=== PATIENT | female | born 1950 | race Two or more races ===

== ENCOUNTER 2023-08-30 17:49 | Inpatient (IN) | payer OTHER ==
[~2023-08-30] VITALS: Ht 170.2 cm; Wt 123.2 kg
[2023-08-30] MEDS ORDERED: AMIODARONE 450mg/250ml AE 250 ML IV ONE (18:08)
[2023-08-30] MEDS ORDERED: NOREPINEPHRINE 8 MG/250ML KIT 250 ML IV ONE (18:10)
[2023-08-30] MEDS ORDERED: AMIODARONE 450mg/250ml AE 250 ML IV SCH (18:30)
[2023-08-30] MEDS: NOREPINEPHRINE 8 MG/250ML KIT 250 ML IV SCH (19:00)
[2023-08-30 19:01] LABS: Hematocrit 36.7 % (36.0-46.0); Hemoglobin 11.3 g/dL (12.2-16.2); Mean Corpuscular Hemoglobin 34.7 pg (28.0-32.0); Mean Corpuscular Hgb Conc. 30.7 g/dL (32.0-36.0); Red Blood Cells 3.25 10^6/uL (4.0-5.20); Red Cell Distribution Width 15.3 % (11.8-14.3); White Blood Cell 20.3 10^3/uL (4.4-10.8)
[2023-08-30] MEDS ORDERED: EPINEPHrine HCL 250 ML IV ONE ×2 (19:10→19:15)
[2023-08-30 19:18] LABS: Basophils % (manual) 0 (0.0-2.0); Blast Cells 0; Eosinophils % (manual) 0 (0-7); Promyelocytes % 0; Reactive Lymphocytes 0
[2023-08-30 19:20] LABS: INR 1.19 (0.9-1.15); Partial Thromboplastin Time 33.9 SEC (24.5-34.5); Prothrombin Time 12.4 sec (9.3-11.8)
[2023-08-30 19:28] LABS: Alanine Aminotransferase 188 U/L (7-40); Albumin 3.7 g/dL (3.2-4.8); Alkaline Phosphatase 85 U/L (46-116); Anion Gap 21 (5-15); Aspartate Aminotransferase 332 U/L (13-40); BUN/Creatinine Ratio 9.3 (10.0-20.0); Blood Urea Nitrogen 19 mg/dL (9-23); Calcium 11.2 mg/dL (8.5-10.1); Carbon Dioxide 16 mmol/L (20-30); Chloride 102 mmol/L (98-107); Glucose 194 mg/dL (74-106); Sodium 139 mmol/L (136-145)
[2023-08-30 19:29] LABS: Bilirubin, Total 0.6 mg/dL (0.2-1.0); Total Protein 5.9 g/dL (5.7-8.2)
[2023-08-30 19:30] VITALS: PULSE 43; PULSE 73; RESP 16; O2SAT 99
[2023-08-30] MEDS: MIDAZOLAM DRIP 50 mg/50mL 50 ML IV SCH (19:40)
[2023-08-30 19:53] LABS: Magnesium 2.4 mg/dL (1.6-2.6)
[2023-08-30 20:10] VITALS: BP 152/78; PULSE 77; RESP 17; O2SAT 100
[2023-08-30] MEDS ORDERED: VANCOMYCIN PER PHARMACY 0 MG IV SCH (20:15)
[2023-08-30] MEDS ORDERED: MORPHINE SULFATE 4 MG/ML SYR/VIAL IV PRN (20:15)
[2023-08-30] MEDS ORDERED: ONDANSETRON HCL 4 MG/2 ML VIAL IV PRN (20:15)
[2023-08-30] MEDS: SODIUM CHLORIDE 0.9% 1,000 ML IV SCH (20:15)
[2023-08-30] MEDS ORDERED: VANCOMYCIN 1GM/200ML 200 ML IV ONE (20:45)
[2023-08-30 20:50] LABS: Anisocytosis Slight; Band Neutrophils % (manual) 14; Lymphocytes % (manual) 15 (10.0-50.0); Macrocytosis Marked; Metamyelocytes % 2; Monocytes % (manual) 6 (0-12); Myelocytes % 1; Platelet Estimate Adequate
[2023-08-30 21:01] VITALS: BP 164/78; PULSE 81; RESP 16; O2SAT 100
[2023-08-30 22:00] VITALS: BP 146/77; PULSE 74; RESP 18; O2SAT 100
[2023-08-30] MEDS ORDERED: ATORVASTATIN 20 MG TAB PO SCH (22:00)
[2023-08-30] MEDS ORDERED: PIPERACILLIN-TAZOB 3.375GM 100 ML IV SCH (22:00)
[2023-08-30 22:20] LABS: Urine Bacteria FEW /hpf (None Seen); Urine Blood 3+ /uL (Negative); Urine Clarity CLOUDY (Clear); Urine Color Red (Yellow); Urine Protein, UAD 3+ (Negative); Urine Urobilinogen Normal (Negative); Urine WBC 1569 /hpf (0 - 5); Urine WBC Clumps PRESENT /hpf (None Seen)
[2023-08-30 22:45] LABS: Amphetamine Screen, Urine Neg (NEGATIVE); Barbiturate Scree,Urine Neg (NEGATIVE); Benzodiazephine Screen, Urine Pos (NEGATIVE); Cannabinoid Screen, Urine Neg (NEGATIVE); Cocaine Screen, Urine Neg (NEGATIVE); Opiate Scree,Urine Pos (NEGATIVE); Phencyclidine Screen, Urine Neg (NEGATIVE)
[2023-08-31] VITALS (62 sets, daily range): BP systolic 97–148; BP diastolic 28–79; PULSE 72–92; RESP 16–26; TEMP 100.6–101.8; O2SAT 94–100
[2023-08-31] MEDS ORDERED: MORPHINE SULFATE INJ 2 MG/ml SYRG IV ONE (00:15)
[2023-08-31] MEDS ORDERED: AMIODARONE 450mg/250ml AE 250 ML IV SCH (00:30)
[2023-08-31 00:41] LABS: Base Excess -3.2 mmol/L (-2.0-2.0)
[2023-08-31] MEDS ORDERED: ACETAMINOPHEN IV 1000 MG/100ML (10MG/ML) IV PRN ×3 (01:30→03:30)
[2023-08-31] MEDS: SODIUM CHLORIDE 0.9% 1,000 ML IV SCH (03:15)
[2023-08-31] MEDS: MIDAZOLAM DRIP 50 mg/50mL 50 ML IV SCH ×3 (04:55→18:23)
[2023-08-31 05:42] LABS: Basophils # (auto) 0 10 ^3/uL (0-0.2); Basophils % (auto) 0.1 % (0.0-2.0); Eosinophils # (auto) 0 10 ^3/uL (0-0.8); Eosinophils % (auto) 0.1 % (0.0-7.0); Monocytes # (auto) 0.3 10 ^3/uL (0-1.3); Neutrophils # (auto) 6.3 10 ^3/uL (1.6-8.6); White Blood Cell 7.2 10^3/uL (4.4-10.8)
[2023-08-31 05:46] LABS: Hematocrit 34.3 % (36.0-46.0); Hemoglobin 11.5 g/dL (12.2-16.2); Lymphocytes # (auto) 0.6 10 ^3/uL (0.4-5.4); Lymphocytes % (auto) 7.9 % (10.0-50.0); Mean Corpuscular Hemoglobin 36.2 pg (28.0-32.0); Mean Corpuscular Hgb Conc. 33.6 g/dL (32.0-36.0); Mean Corpuscular Volume 107.6 fL (80.0-100.0); Monocytes % (auto) 4.4 % (0.0-12.0); Neutrophils % (auto) 87.5 % (37.0-80.0); Nucleated Red Blood Cells % 0.1 %; Red Blood Cells 3.18 10^6/uL (4.0-5.20); Red Cell Distribution Width 14.4 % (11.8-14.3)
[2023-08-31 05:46] LABS: Base Excess -1.7 mmol/L (-2.0-2.0)
[2023-08-31 05:57] LABS: INR 1.24 (0.9-1.15); Partial Thromboplastin Time 31.3 SEC (24.5-34.5); Prothrombin Time 12.8 sec (9.3-11.8)
[2023-08-31 06:10] LABS: Alanine Aminotransferase 594 U/L (7-40); Albumin 3.3 g/dL (3.2-4.8); Alkaline Phosphatase 74 U/L (46-116); Anion Gap 8 (5-15); Aspartate Aminotransferase > 1000 U/L (13-40); BUN/Creatinine Ratio 15.5 (10.0-20.0); Calcium 9.3 mg/dL (8.5-10.1); Carbon Dioxide 27 mmol/L (20-30); Chloride 105 mmol/L (98-107); Glucose 123 mg/dL (74-106); LDL Cholesterol 33 mg/dL (< 100); Potassium 4.3 mmol/L (3.5-5.1); Sodium 140 mmol/L (136-145); Triglycerides 86 mg/dL (< 150)
[2023-08-31 06:11] LABS: Bilirubin, Total 0.9 mg/dL (0.2-1.0); Cholesterol 98 mg/dL (< 200); HDL Cholesterol 49 mg/dL (40-59); Total Protein 5.2 g/dL (5.7-8.2)
[2023-08-31 06:20] LABS: Blood Urea Nitrogen 34 mg/dL (9-23)
[2023-08-31 06:43] LABS: Magnesium 1.7 mg/dL (1.6-2.6)
[2023-08-31] MEDS ORDERED: CLOPIDOGREL BISULFATE 75 MG TAB PO SCH (10:00)
[2023-08-31] MEDS ORDERED: ASPirin 81 mg TAB PO SCH (10:00)
[2023-08-31] MEDS ORDERED: CEFEPIME 1GM/ 50ML 50 ML IV SCH (11:00)
[2023-08-31] MEDS ORDERED: MAGNESIUM SULFATE 1GM/100ML 100 ML IV ONE (11:00)
[2023-08-31] MEDS ORDERED: SODIUM CHLORIDE 0.9% 1,000 ML IV SCH (12:30)
[2023-08-31] MEDS ORDERED: PANTOPRAZOLE 40 MG/10 ML VIAL INJ IV ONE (12:30)
[2023-08-31] MEDS ORDERED: MEROPENEM 1GM IVPB 100 ML IV ONE (13:15)
[2023-08-31] MEDS ORDERED: ENOXAPARIN SOD 100 MG/1 ML SYRINGE SC SCH (13:15)
[2023-08-31] MEDS: fentaNYL Drip 2500mCg/250mlNS 250 ML IV SCH (14:03)
[2023-08-31] MEDS ORDERED: VANCOMYCIN 1GM/200ML 200 ML IV ONE (15:00)
[2023-08-31] MEDS ORDERED: TRAZ-228 PO (16:56)
[2023-08-31] MEDS ORDERED: LISI40TA16 PO (16:56)
[2023-08-31] MEDS ORDERED: GABA-1308 PO ×2 (16:56)
[2023-08-31] MEDS ORDERED: HYDR12.59 PO (16:56)
[2023-08-31] MEDS ORDERED: ATEN50TA PO (16:56)
[2023-08-31] MEDS ORDERED: CITA-77 PO (16:56)
[2023-08-31] MEDS ORDERED: HYDR-4902 PO (16:56)
[2023-08-31] MEDS ORDERED: MORP1TAB14 PO (16:56)
[2023-08-31] MEDS ORDERED: THIAMINE 100mg/ml INJ (200mg/2ml VIAL) IM ONE (18:00)
[2023-08-31] MEDS ORDERED: FOLIC ACID 1 MG, MAGNESIUM SULF SDV 50% 8 MEQ, MULTIPLE VITAMIN 10 ML, THIAMINE INJ 100... INJ SCH ×5 (18:00)
[2023-08-31] MEDS ORDERED: FOLIC ACID 1 MG in D5W 5% 50 ML INJ ONE (18:00)
[2023-08-31] MEDS: NOREPINEPHRINE 8 MG/250ML KIT 250 ML IV SCH (19:00)
[2023-08-31] MEDS: PROPOFOL 100 ML IV SCH (20:00)
[2023-08-31] MEDS: MEROPENEM 1GM IVPB 100 ML IV SCH (21:17)
[2023-09-01] VITALS (105 sets, daily range): BP systolic 93–145; BP diastolic 21–79; PULSE 64–90; RESP 10–21; TEMP 97.3–101.5; O2SAT 90–100
[2023-09-01] MEDS: PROPOFOL 100 ML IV SCH ×4 (02:17→22:58)
[2023-09-01] MEDS: MIDAZOLAM DRIP 50 mg/50mL 50 ML IV SCH ×6 (04:30→23:03)
[2023-09-01 05:30] LABS: Basophils # (auto) 0 10 ^3/uL (0-0.2); Basophils % (auto) 0.1 % (0.0-2.0); Eosinophils # (auto) 0.1 10 ^3/uL (0-0.8); Eosinophils % (auto) 0.5 % (0.0-7.0); Hematocrit 33.9 % (36.0-46.0); Hemoglobin 11.1 g/dL (12.2-16.2); Lymphocytes # (auto) 0.4 10 ^3/uL (0.4-5.4); Lymphocytes % (auto) 4.1 % (10.0-50.0); Mean Corpuscular Hemoglobin 35.7 pg (28.0-32.0); Mean Corpuscular Hgb Conc. 32.6 g/dL (32.0-36.0); Mean Corpuscular Volume 109.6 fL (80.0-100.0); Monocytes # (auto) 0.4 10 ^3/uL (0-1.3); Monocytes % (auto) 3.9 % (0.0-12.0); Neutrophils # (auto) 9.5 10 ^3/uL (1.6-8.6); Neutrophils % (auto) 91.4 % (37.0-80.0); Nucleated Red Blood Cells % 0.1 %; Red Cell Distribution Width 14.8 % (11.8-14.3); White Blood Cell 10.4 10^3/uL (4.4-10.8)
[2023-09-01 05:53] LABS: Alanine Aminotransferase 666 U/L (7-40); Albumin 3.1 g/dL (3.2-4.8); Alkaline Phosphatase 77 U/L (46-116); Anion Gap 10 (5-15); Aspartate Aminotransferase 860 U/L (13-40); BUN/Creatinine Ratio 16.1 (10.0-20.0); Bilirubin, Total 0.6 mg/dL (0.2-1.0); Calcium 8.2 mg/dL (8.7-10.4); Carbon Dioxide 23 mmol/L (20-30); Chloride 107 mmol/L (98-107); Glucose 103 mg/dL (74-106); Potassium 4.5 mmol/L (3.5-5.1); Sodium 140 mmol/L (136-145); Total Protein 5.2 g/dL (5.7-8.2)
[2023-09-01 05:54] LABS: Blood Urea Nitrogen 52 mg/dL (9-23)
[2023-09-01] MEDS: fentaNYL Drip 2500mCg/250mlNS 250 ML IV SCH ×3 (07:40→23:08)
[2023-09-01] MEDS: NOREPINEPHRINE 8 MG/250ML KIT 250 ML IV SCH (07:41)
[2023-09-01] MEDS ORDERED: FOLIC ACID 1 MG in D5W 5% 50 ML INJ SCH (10:00)
[2023-09-01] MEDS ORDERED: THIAMINE 100mg/ml INJ (200mg/2ml VIAL) IV SCH (10:00)
[2023-09-01] MEDS: PANTOPRAZOLE 40 MG/10 ML VIAL INJ IV SCH (10:00)
[2023-09-01] MEDS: MEROPENEM 1GM IVPB 100 ML IV SCH ×2 (10:01→22:59)
[2023-09-01] MEDS ORDERED: HEPARIN SODIUM (PORCINE) 5000 UNITS/ML 1ML VIAL SC ONE (11:15)
[2023-09-01] MEDS: FUROSEMIDE 100 MG/10ML VIAL IV SCH ×2 (15:29→18:04)
[2023-09-01] MEDS ORDERED: ATROPINE SULF 1 MG/10ml SYR IV ONE (16:42)
[2023-09-01 17:46] LABS: Protein, Urine 187.7 mg/dL (0.0-11.9)
[2023-09-01 17:48] LABS: Creatinine, Urine 81.71 mg/dL (30.0-125.0)
[2023-09-01] MEDS: HEPARIN SODIUM (PORCINE) 5000 UNITS/ML 1ML VIAL SC SCH (23:02)
[2023-09-02] VITALS (91 sets, daily range): BP systolic 106–165; BP diastolic 50–78; PULSE 64–77; RESP 14–21; TEMP 97.3–100.8; O2SAT 91–100
[2023-09-02] MEDS: MIDAZOLAM DRIP 50 mg/50mL 50 ML IV SCH ×3 (03:46→10:00)
[2023-09-02] MEDS: PROPOFOL 100 ML IV SCH (06:03)
[2023-09-02 06:15] LABS: Basophils # (auto) 0 10 ^3/uL (0-0.2); Eosinophils # (auto) 0.2 10 ^3/uL (0-0.8); Hemoglobin 10.2 g/dL (12.2-16.2); Monocytes # (auto) 0.4 10 ^3/uL (0-1.3); Nucleated Red Blood Cells % 0.1 %; White Blood Cell 7.1 10^3/uL (4.4-10.8)
[2023-09-02 06:19] LABS: Basophils % (auto) 0.3 % (0.0-2.0); Eosinophils % (auto) 3.2 % (0.0-7.0); Hematocrit 30.4 % (36.0-46.0); Lymphocytes # (auto) 0.5 10 ^3/uL (0.4-5.4); Lymphocytes % (auto) 6.9 % (10.0-50.0); Mean Corpuscular Hemoglobin 35.5 pg (28.0-32.0); Mean Corpuscular Hgb Conc. 33.5 g/dL (32.0-36.0); Mean Corpuscular Volume 106.1 fL (80.0-100.0); Neutrophils # (auto) 5.9 10 ^3/uL (1.6-8.6); Neutrophils % (auto) 83.6 % (37.0-80.0); Red Blood Cells 2.86 10^6/uL (4.0-5.20); Red Cell Distribution Width 14.2 % (11.8-14.3)
[2023-09-02] MEDS: FUROSEMIDE 100 MG/10ML VIAL IV SCH ×2 (06:25→17:52)
[2023-09-02 06:29] LABS: Anion Gap 14 (5-15); Calcium 8.4 mg/dL (8.7-10.4); Carbon Dioxide 19 mmol/L (20-30); Chloride 107 mmol/L (98-107); Potassium 3.7 mmol/L (3.5-5.1); Sodium 140 mmol/L (136-145)
[2023-09-02 06:35] LABS: BUN/Creatinine Ratio 15.1 (10.0-20.0); Blood Urea Nitrogen 56 mg/dL (9-23); Glucose 99 mg/dL (74-106)
[2023-09-02] MEDS: fentaNYL Drip 2500mCg/250mlNS 250 ML IV SCH ×2 (06:39→17:46)
[2023-09-02] MEDS: PANTOPRAZOLE 40 MG/10 ML VIAL INJ IV SCH (07:47)
[2023-09-02] MEDS: MEROPENEM 1GM IVPB 100 ML IV SCH ×2 (07:47→21:36)
[2023-09-02] MEDS: HEPARIN SODIUM (PORCINE) 5000 UNITS/ML 1ML VIAL SC SCH ×2 (07:48→21:37)
[2023-09-02] MEDS: NOREPINEPHRINE 8 MG/250ML KIT 250 ML IV SCH (09:47)
[2023-09-02] MEDS ORDERED: ACETAMINOPHEN 650 MG RECT SUPP PR PRN (13:45)
[2023-09-02] MEDS ORDERED: VANCOMYCIN 500 MG in D5W 5% 100 ML IV ONE (16:00)
[2023-09-03] VITALS (103 sets, daily range): BP systolic 121–186; BP diastolic 53–88; PULSE 60–94; RESP 10–23; TEMP 96.4–100.6; O2SAT 91–100
[2023-09-03] MEDS: PROPOFOL 100 ML IV SCH ×2 (03:10→10:51)
[2023-09-03] MEDS: FUROSEMIDE 100 MG/10ML VIAL IV SCH (05:52)
[2023-09-03 06:48] LABS: Hemoglobin 11.2 g/dL (12.2-16.2); Mean Corpuscular Volume 104.2 fL (80.0-100.0); Red Cell Distribution Width 14.1 % (11.8-14.3)
[2023-09-03 06:50] LABS: Alanine Aminotransferase 300 U/L (7-40); Albumin 3.3 g/dL (3.2-4.8); Alkaline Phosphatase 108 U/L (46-116); Anion Gap 12 (5-15); Aspartate Aminotransferase 177 U/L (13-40); Blood Urea Nitrogen 65 mg/dL (9-23); Calcium 9.2 mg/dL (8.5-10.1); Carbon Dioxide 23 mmol/L (20-30); Chloride 107 mmol/L (98-107); Glucose 93 mg/dL (74-106); Potassium 3.6 mmol/L (3.5-5.1); Sodium 142 mmol/L (136-145)
[2023-09-03 06:51] LABS: Bilirubin, Total 0.5 mg/dL (0.2-1.0); Total Protein 5.7 g/dL (5.7-8.2)
[2023-09-03 06:51] LABS: Base Excess -3.7 mmol/L (-2.0-2.0)
[2023-09-03 06:52] LABS: Hematocrit 33.6 % (36.0-46.0); Mean Corpuscular Hemoglobin 34.9 pg (28.0-32.0); Mean Corpuscular Hgb Conc. 33.5 g/dL (32.0-36.0); Red Blood Cells 3.22 10^6/uL (4.0-5.20); White Blood Cell 7.7 10^3/uL (4.4-10.8)
[2023-09-03 07:31] LABS: Basophils % (manual) 0 (0.0-2.0); Blast Cells 0; Metamyelocytes % 0; Myelocytes % 0; Promyelocytes % 0; Reactive Lymphocytes 0
[2023-09-03 09:09] LABS: Band Neutrophils % (manual) 8; Eosinophils % (manual) 2 (0-7); Lymphocytes % (manual) 17 (10.0-50.0); Macrocytosis Slight; Monocytes % (manual) 10 (0-12)
[2023-09-03 09:10] LABS: Giant Platelets Few; Platelet Estimate Decreased
[2023-09-03] MEDS ORDERED: DOPamine 1600MCG/ML D5W 250 ML IV SCH (10:30)
[2023-09-03] MEDS: HEPARIN SODIUM (PORCINE) 5000 UNITS/ML 1ML VIAL SC SCH ×2 (10:35→22:19)
[2023-09-03] MEDS: PANTOPRAZOLE 40 MG/10 ML VIAL INJ IV SCH (10:35)
[2023-09-03] MEDS: MEROPENEM 1GM IVPB 100 ML IV SCH (10:35)
[2023-09-03] MEDS: BUMETANIDE INJECTION 12.5 MG in GIVE UN-DILUTED 0 ML IV SCH (12:08)
[2023-09-03] MEDS ORDERED: THIAMINE 100mg/ml INJ (200mg/2ml VIAL) IV ONE (13:00)
[2023-09-03] MEDS ORDERED: VANCOMYCIN 500 MG in D5W 5% 100 ML IV ONE (13:00)
[2023-09-03] MEDS ORDERED: FOLIC ACID 1 MG in D5W 5% 50 ML INJ ONE (13:00)
[2023-09-03] MEDS: DOPamine 1600MCG/ML D5W 250 ML IV SCH (14:00)
[2023-09-03] MEDS ORDERED: CEFTRIAXONE SODIUM 2 GM in D5W 5% 100 ML IV ONE (14:00)
[2023-09-03] MEDS: OCTREOTIDE ACETATE 100 MCG/ML VL SUBCUT SCH ×2 (14:00→22:20)
[2023-09-03] MEDS: NOREPINEPHRINE 8 MG/250ML KIT 250 ML IV SCH (18:30)
[2023-09-03] MEDS: MIDAZOLAM DRIP 50 mg/50mL 50 ML IV SCH (19:00)
[2023-09-03] MEDS: hydrALAZINE HCL 20 MG/ML VL IV PRN (22:44)
[2023-09-03] MEDS ORDERED: ACETAMINOPHEN 650 mg PER 20.3 mL UD GT PRN (22:45)
[2023-09-04] VITALS (106 sets, daily range): BP systolic 115–173; BP diastolic 55–99; PULSE 77–106; RESP 13–40; TEMP 99.5–100.4; O2SAT 93–98
[2023-09-04] MEDS: BUMETANIDE INJECTION 12.5 MG in GIVE UN-DILUTED 0 ML IV SCH (00:11)
[2023-09-04] MEDS: OCTREOTIDE ACETATE 100 MCG/ML VL SUBCUT SCH ×3 (05:38→21:30)
[2023-09-04] MEDS: hydrALAZINE HCL 20 MG/ML VL IV PRN ×2 (05:40→18:39)
[2023-09-04 05:50] LABS: Basophils # (auto) 0 10 ^3/uL (0-0.2); Eosinophils # (auto) 0.1 10 ^3/uL (0-0.8); Hemoglobin 12.3 g/dL (12.2-16.2); Lymphocytes % (auto) 8.4 % (10.0-50.0); Monocytes # (auto) 1.4 10 ^3/uL (0-1.3)
[2023-09-04 05:54] LABS: Basophils % (auto) 0.4 % (0.0-2.0); Hematocrit 36.6 % (36.0-46.0); Lymphocytes # (auto) 0.9 10 ^3/uL (0.4-5.4); Mean Corpuscular Hemoglobin 34.9 pg (28.0-32.0); Mean Corpuscular Hgb Conc. 33.6 g/dL (32.0-36.0); Monocytes % (auto) 12.8 % (0.0-12.0); Neutrophils # (auto) 8.2 10 ^3/uL (1.6-8.6); Neutrophils % (auto) 77.4 % (37.0-80.0); Red Blood Cells 3.52 10^6/uL (4.0-5.20); White Blood Cell 10.6 10^3/uL (4.4-10.8)
[2023-09-04 06:07] LABS: Alanine Aminotransferase 228 U/L (7-40); Albumin 3.5 g/dL (3.2-4.8); Alkaline Phosphatase 135 U/L (46-116); Anion Gap 14 (5-15); Aspartate Aminotransferase 116 U/L (13-40); BUN/Creatinine Ratio 19.5 (10.0-20.0); Blood Urea Nitrogen 66 mg/dL (9-23); Calcium 9.5 mg/dL (8.5-10.1); Carbon Dioxide 26 mmol/L (20-30); Chloride 104 mmol/L (98-107); Glucose 140 mg/dL (74-106); Potassium 3.2 mmol/L (3.5-5.1); Sodium 144 mmol/L (136-145)
[2023-09-04 06:08] LABS: Bilirubin, Total 0.4 mg/dL (0.2-1.0); Total Protein 6.4 g/dL (5.7-8.2)
[2023-09-04 08:13] LABS: Base Excess 1.7 mmol/L (-2.0-2.0)
[2023-09-04] MEDS ORDERED: levoFLOXacin 750MG 150 ML IV ONE (08:15)
[2023-09-04] MEDS: POTASSIUM CHL 20MEQ/100ML 100 ML IV SCH ×2 (08:56→13:07)
[2023-09-04] MEDS ORDERED: POTASSIUM CHL 20MEQ/100ML 100 ML IV SCH (09:30)
[2023-09-04] MEDS ORDERED: CEFTRIAXONE SODIUM 2 GM in D5W 5% 100 ML IV SCH (10:00)
[2023-09-04] MEDS: PANTOPRAZOLE 40 MG/10 ML VIAL INJ IV SCH (10:23)
[2023-09-04] MEDS: THIAMINE 100mg/ml INJ (200mg/2ml VIAL) IV SCH (10:23)
[2023-09-04] MEDS: HEPARIN SODIUM (PORCINE) 5000 UNITS/ML 1ML VIAL SC SCH ×2 (10:24→21:30)
[2023-09-04] MEDS: DexmedeTOMIDine 200 MCG in D5W 5% 48 ML IV SCH ×2 (12:45→20:32)
[2023-09-04] MEDS: FOLIC ACID 1 MG in D5W 5% 50 ML INJ SCH (12:46)
[2023-09-04] MEDS ORDERED: ACETAMINOPHEN 650 mg PER 20.3 mL UD GT PRN (13:00)
[2023-09-04] MEDS: fentaNYL Drip 2500mCg/250mlNS 250 ML IV SCH (13:15)
[2023-09-04] MEDS: NOREPINEPHRINE 8 MG/250ML KIT 250 ML IV SCH (18:30)
[2023-09-04] MEDS: DOPamine 1600MCG/ML D5W 250 ML IV SCH (18:43)
[2023-09-04] MEDS: PROPOFOL 100 ML IV SCH (19:15)
[2023-09-05] VITALS (106 sets, daily range): BP systolic 112–174; BP diastolic 70–103; PULSE 86–116; RESP 13–23; TEMP 98.4–100; O2SAT 95–100
[2023-09-05] MEDS: BUMETANIDE INJECTION 12.5 MG in GIVE UN-DILUTED 0 ML IV SCH (02:02)
[2023-09-05 04:05] LABS: Basophils # (auto) 0.1 10 ^3/uL (0-0.2); Eosinophils # (auto) 0 10 ^3/uL (0-0.8); Eosinophils % (auto) 0.3 % (0.0-7.0); Hemoglobin 13.4 g/dL (12.2-16.2); Monocytes # (auto) 1.7 10 ^3/uL (0-1.3); Red Cell Distribution Width 14.1 % (11.8-14.3)
[2023-09-05 04:10] LABS: Basophils % (auto) 0.9 % (0.0-2.0); Hematocrit 39.9 % (36.0-46.0); Lymphocytes # (auto) 1.4 10 ^3/uL (0.4-5.4); Lymphocytes % (auto) 9.7 % (10.0-50.0); Mean Corpuscular Hemoglobin 34.7 pg (28.0-32.0); Mean Corpuscular Hgb Conc. 33.6 g/dL (32.0-36.0); Mean Corpuscular Volume 103.2 fL (80.0-100.0); Monocytes % (auto) 12.1 % (0.0-12.0); Neutrophils # (auto) 11.1 10 ^3/uL (1.6-8.6); Red Blood Cells 3.86 10^6/uL (4.0-5.20); White Blood Cell 14.4 10^3/uL (4.4-10.8)
[2023-09-05] MEDS: DexmedeTOMIDine 200 MCG in D5W 5% 48 ML IV SCH ×3 (04:19→19:53)
[2023-09-05 04:22] LABS: Alanine Aminotransferase 171 U/L (7-40); Albumin 3.9 g/dL (3.2-4.8); Alkaline Phosphatase 121 U/L (46-116); Anion Gap 11 (5-15); Aspartate Aminotransferase 72 U/L (13-40); BUN/Creatinine Ratio 28.8 (10.0-20.0); Bilirubin, Total 0.5 mg/dL (0.2-1.0); Calcium 9.7 mg/dL (8.5-10.1); Carbon Dioxide 30 mmol/L (20-30); Chloride 106 mmol/L (98-107); Glucose 162 mg/dL (74-106); Potassium 2.9 mmol/L (3.5-5.1); Sodium 147 mmol/L (136-145); Total Protein 7.1 g/dL (5.7-8.2)
[2023-09-05 04:35] LABS: Blood Urea Nitrogen 81 mg/dL (9-23)
[2023-09-05] MEDS ORDERED: POTASSIUM CHL 20MEQ/100ML 100 ML IV ONE (05:00)
[2023-09-05] MEDS: OCTREOTIDE ACETATE 100 MCG/ML VL SUBCUT SCH ×3 (05:30→21:34)
[2023-09-05] MEDS: hydrALAZINE HCL 20 MG/ML VL IV PRN (05:36)
[2023-09-05 08:40] LABS: Base Excess 3.8 mmol/L (-2.0-2.0)
[2023-09-05] MEDS: PANTOPRAZOLE 40 MG/10 ML VIAL INJ IV SCH (09:57)
[2023-09-05] MEDS: THIAMINE 100mg/ml INJ (200mg/2ml VIAL) IV SCH (09:58)
[2023-09-05] MEDS: FOLIC ACID 1 MG in D5W 5% 50 ML INJ SCH (09:59)
[2023-09-05] MEDS ORDERED: levoFLOXacin 750MG 150 ML IV SCH (10:00)
[2023-09-05] MEDS: HEPARIN SODIUM (PORCINE) 5000 UNITS/ML 1ML VIAL SC SCH ×2 (10:00→21:35)
[2023-09-05] MEDS: POTASSIUM EFFERVESENT TAB 25 MEQ GT ONE ×2 (11:18→13:05)
[2023-09-05] MEDS: POTASSIUM CHL 20MEQ/100ML 100 ML IV SCH ×2 (11:25→14:55)
[2023-09-05] MEDS: fentaNYL Drip 2500mCg/250mlNS 250 ML IV SCH (11:31)
[2023-09-05] MEDS ORDERED: Jevity 1.2 Cal/Fiber 1 Liter GT SCH (12:15)
[2023-09-05] MEDS: DOPamine 1600MCG/ML D5W 250 ML IV SCH ×2 (13:03→20:37)
[2023-09-05] MEDS: PROPOFOL 100 ML IV SCH (19:15)
[2023-09-06] VITALS: PULSE 94; RESP 20; O2SAT 97
[2023-09-06 00:35] VITALS: BP 165/97; PULSE 220; TEMP 98.4
== END 2023-09-06 00:10 | disposition short-term general hospital (02) | DRG 870 ==
LOC: EDUNIT# 17:49 → ER 17:49 → EDBD 17:49 → TELE 20:17 → ICU CENTRL 09-01 00:46
PROVIDERS: ADMIT Internal Medicine; ATTEND Internal Medicine
PROC: 5A1955Z Respiratory Ventilation, Greater than 96 Consecutive Hours (ICD-10-PCS; principal; 2023-08-30)
PROC: 0BH17EZ Insertion of Endotracheal Airway into Trachea, Via Natural or Artificial Opening (ICD-10-PCS; 2023-08-30)
PROC: 02HV33Z Insertion of Infusion Device into Superior Vena Cava, Percutaneous Approach (ICD-10-PCS; 2023-08-30)
PROC: B548ZZA Ultrasonography of Superior Vena Cava, Guidance (ICD-10-PCS; 2023-08-30)
PROC: 5A12012 Performance of Cardiac Output, Single, Manual (ICD-10-PCS; 2023-08-31)
DX: A41.9 Sepsis, unspecified organism (principal); G93.41 Metabolic encephalopathy; I21.A1 Myocardial infarction type 2; I46.9 Cardiac arrest, cause unspecified; J69.0 Pneumonitis due to inhalation of food and vomit; J96.01 Acute respiratory failure with hypoxia; R65.21 Severe sepsis with septic shock; N17.0 Acute kidney failure with tubular necrosis; K76.7 Hepatorenal syndrome; J18.9 Pneumonia, unspecified organism; I50.31 Acute diastolic (congestive) heart failure; E87.4 Mixed disorder of acid-base balance; N39.0 Urinary tract infection, site not specified; Z68.41 Body mass index [BMI] 40.0-44.9, adult; B96.20 Unspecified Escherichia coli [E. coli] as the cause of diseases classified elsewhere; B96.89 Other specified bacterial agents as the cause of diseases classified elsewhere; E66.01 Morbid (severe) obesity due to excess calories; D50.9 Iron deficiency anemia, unspecified; D53.9 Nutritional anemia, unspecified; F41.9 Anxiety disorder, unspecified; F10.229 Alcohol dependence with intoxication, unspecified; F17.200 Nicotine dependence, unspecified, uncomplicated; I10 Essential (primary) hypertension; I45.81 Long QT syndrome; I48.0 Paroxysmal atrial fibrillation; K70.40 Alcoholic hepatic failure without coma; Z79.899 Other long term (current) drug therapy; Z82.49 Family history of ischemic heart disease and other diseases of the circulatory system; Z90.710 Acquired absence of both cervix and uterus
CPT/HCPCS: 31500; 36415; 36556; 36600; 70450; 71045; 76705; 80048; 80053; 80061; 80202; 80307; 81001; 82140; 82570; 82805; 83605; 83735; 83880; 84132; 84156; 84300; 84443; 84484; 85007; 85025; 85027; 85379; 85610; 85730; 86850; 86900; 86901; 87040; 87070; 87077; 87081; 87086; 87088; 87186; 87205; 92950; 93005; 93306; 93970; 94002; 94003; 95819; 96365; 96375; 99291; 99292; C9113; G0378; J0131; J0171; J0696; J1956; J2185; J2250; J2543; J2704; J3480; J7060